=== PATIENT | female | born 2000 | race Caucasian/White ===

== ENCOUNTER 2025-03-26 13:05 | Outpatient (CLI) | payer BC ==
[2025-03-26 14:26] LABS: BHCG - Serum Negative (NEGATIVE); Pregs Control Background? CLEAR/WHITE (CLR/WHITE); Pregs Control Bar Appear? YES (CONTROL BAR)
== END 2025-03-26 13:06 | disposition home or self-care (01) ==
LOC: CSHLAB 13:05
PROVIDERS: ATTEND Surgery
DX: Z01.812 Encounter for preprocedural laboratory examination (principal); D24.1 Benign neoplasm of right breast
CPT/HCPCS: 84703